=== PATIENT | female | born 1985 | race African-American/Black ===

== ENCOUNTER 2017-12-07 05:33 | Day surgery (SDC) | payer OTHER ==
[2017-12-04 15:23] VITALS: BMI 26.4
--- NOTE | 2017-12-07 15:20 | HP ---
History & Physical Update - History History: No Change - Physical Physical: No Change - Assessment Assessment: No Change - Plan Plan: No Change (Agree with H&P from 12/04/17. Pt with abdominal discomfort, endometrial polyps noted on saline infusion sonography and submucosal fibroid. Plan for hysteroscopic myomectomy/polypectomy and suction D&C. Risks/benefits /alternatives to plan discussed, risks including bleeding/infection/perforation discussed, pt aware and understands. Consents from 12/04/17 reconfirmed today.)
[2017-12-07] MEDS ORDERED: ACETAMINOPHEN 325 MG TABLET (FP) PO PRN (15:23)
[2017-12-07] MEDS ORDERED: IBUPROFEN 800 MG/8 ML IJ IVPB PRN (15:23)
[2017-12-07] MEDS ORDERED: LACTATED RINGERS SOLUTION 1,000 ML IV SCH ×2 (15:30→17:45)
[2017-12-07] MEDS ORDERED: KETOROLAC TROMETHAMINE 30 MG/1 ML VIAL ONE (16:48)
[2017-12-07] MEDS ORDERED: DEXAMETHASONE SOD PHOSPHATE 4 MG/1 ML VIAL ONE (16:48)
[2017-12-07] MEDS ORDERED: PROPOFOL 20 ML ONE ×3 (16:49)
[2017-12-07] MEDS ORDERED: MIDAZOLAM HCL 2 MG/2 ML SINGLE DOSE VIAL ONE ×2 (16:49)
[2017-12-07] MEDS ORDERED: oxyCODONE HCL 5 MG TABLET PO PRN (17:44)
[2017-12-07] MEDS ORDERED: PROMETHAZINE HCL 25 MG/1 ML VIAL IVPUSH PRN (17:44)
[2017-12-07] MEDS ORDERED: ONDANSETRON 4 MG/2 ML VIAL IVPUSH PRN (17:44)
[2017-12-07 18:32] VITALS: TEMP 98.2
[2017-12-07 19:43] VITALS: BP 134/77; PULSE 94
--- NOTE | 2017-12-08 10:17 | OP ---
Operative Note - Note: Operative Date: 12/07/17 (dictation [id number]) Pre-Operative Diagnosis: AUB, endometrial polyp, fibroids Operation: hysteroscopy, D&C Findings: no intracavitary lesions/fibroids/polyps noted Surgeon: Hetal Mohamud Anesthesiologist/PUMP ROOM OPERATOR: Addi Geller Anesthesia: General Specimens Removed: endometrial curettings Estimated Blood Loss (mls): 10 Operative Report Dictated: Yes
--- NOTE | 2017-12-08 11:23 | OP ---
DATE OF OPERATION: 12/07/2017 PREOPERATIVE DIAGNOSES: Abnormal uterine bleeding, endometrial polyp, and uterine fibroid. POSTOPERATIVE DIAGNOSES: Abnormal uterine bleeding, endometrial polyp, and uterine fibroid. PROCEDURE: Diagnostic hysteroscopy, dilatation and curettage, and suction dilatation and curettage. SURGEON: Hetal Mohamud DO ANESTHESIA: General by Dr. Geller COMPLICATIONS: None. ESTIMATED BLOOD LOSS: 10 mL. SPECIMENS: Endometrial curettings. FINDINGS: Include extensive intracavitary tissue. No intracavitary polyps or fibroids appreciated. SPONGE AND INSTRUMENT COUNTS: Correct. DISPOSITION: Stable to PACU. BRIEF HISTORY AND PROCEDURE: Patient is a 32-year-old female who has been seen in the office with complaints of pelvic pain and known to have uterine fibroids on saline infusion sonogram and endometrial polyp, and possible submucosal fibroid was appreciated. The patient elected to undergo a hysteroscopic resection of these lesions. The patient was admitted to hospital on December 07, 2017. Consents for the procedure were signed, and she was then taken back to the operating room and placed in the dorsal lithotomy position after anesthesia was administered. The speculum was placed inside the vagina. The anterior lip of the cervix was grasped with a tenaculum, and the cervix was dilated to accommodate an operative hysteroscope which was advanced to the fundus of the uterus. No intracavitary polyps or fibroids were appreciated. However, extensive intracavitary tissue was noted. A sharp dilatation and curettage and suction dilatation and curettage was performed at this time in all 4 locke of the uterus for tissue sampling. A second look with the camera again revealed no lesions. No evidence of uterine perforation or uterine trauma. All instruments were removed from the vagina. Sponge and instrument counts were reported to be correct. The patient tolerated the procedure well and recovering in stable condition in the PACU after the procedure. HETAL MOHAMUD DO /[id number]
--- NOTE | 2017-12-10 11:21 | PATH ---
Surgical Pathology Report Patient Name: ALEX MATIAS [facility]. Rec. #: [id number] /Age/Gender: 1985 (Age: 32) / F Account: [id number] Location: [facility] SURGICAL Taken: 12/07/2017 Received: 12/08/2017 Reported: 12/10/2017 Physicians: Hetal Mohamud M.D. Specimen(s) Received ENDOMETRIAL CURETTINGS Clinical History Menorrhagia Final Diagnosis ENDOMETRIAL CURETTINGS, DILATION AND CURETTAGE: POLYPOID FRAGMENTS OF SECRETORY ENDOMETRIUM WITH FOCAL HYPERSECRETORY FEATURES AND SCANT BENIGN ENDOCERVICAL TISSUE. Comment: Case seen interdepartmentally. Findings discussed with Dr. Mohamud. Suggest clinical correlation and follow-up. Electronically Signed Nadine Chinchilla M.D. Gross Description Received in formalin labeled "endometrial curetting" are multiple fragments of pink-dove hemorrhagic tissue measuring 1.5 x 1 x 0.3 cm in aggregate. Entire specimen submitted in one cassette. MLSZ/12/08/2017 san[facility]/12/08/2017
== END 2017-12-07 19:25 | disposition home or self-care (01) ==
LOC: JASU-SURG 05:33
PROVIDERS: ATTEND Obstetrics & Gynecology
PROC: 0UDB7ZX Extraction of Endometrium, Via Natural or Artificial Opening, Diagnostic (ICD-10-PCS; principal; 2017-12-07 16:00)
PROC: 0UJD8ZZ Inspection of Uterus and Cervix, Via Natural or Artificial Opening Endoscopic (ICD-10-PCS; 2017-12-07 16:00)
DX: N93.9 Abnormal uterine and vaginal bleeding, unspecified (principal)
CPT/HCPCS: 36415; 84703; 86850; 86900; 86901; 88305-TC; 94760

== ENCOUNTER 2020-03-05 05:05 | Day surgery (SDC) | payer OTHER ==
[2020-02-27 14:38] VITALS: BMI 24.1
[~2020-03-05 05:05] MED LIST: FERRIC SUBSULFATE 500 ML BOTTLE TP ONE; IODINE/POTASSIUM IODIDE 5%/10% 14 ML BOTTLE NR ONE
[2020-03-05] MEDS ORDERED: ACETAMINOPHEN 325 MG TABLET (FP) PO PRN (06:19)
[2020-03-05] MEDS ORDERED: IBUPROFEN 400 MG TABLET (FP) PO PRN (06:19)
[2020-03-05] MEDS ORDERED: PROPOFOL 20 ML ONE ×3 (08:50)
[2020-03-05] MEDS ORDERED: MIDAZOLAM HCL 2 MG/2 ML SINGLE DOSE VIAL ONE (08:51)
[2020-03-05] MEDS ORDERED: KETOROLAC TROMETHAMINE 30 MG/1 ML VIAL ONE (08:51)
[2020-03-05] MEDS ORDERED: SUCCINYLCHOLINE CHLORIDE 200 MG/10 ML SYRINGE ONE (08:51)
[2020-03-05] MEDS ORDERED: LIDOCAINE HCL/PF 2% SDV 5ML VIAL ONE (08:51)
[2020-03-05] MEDS ORDERED: ceFAZolin SODIUM 1 GM VIAL ONE (08:51)
[2020-03-05] MEDS ORDERED: DEXAMETHASONE SOD PHOSPHATE 4 MG/1 ML VIAL ONE (08:51)
[2020-03-05] MEDS ORDERED: IODINE/POTASSIUM IODIDE 5%/10% 14 ML BOTTLE NR ONE (09:38)
[2020-03-05] MEDS ORDERED: FERRIC SUBSULFATE 500 ML BOTTLE TP ONE (09:38)
[2020-03-05] MEDS ORDERED: oxyCODONE HCL 5 MG TABLET PO PRN ×2 (09:56)
[2020-03-05] MEDS ORDERED: ONDANSETRON 4 MG/2 ML VIAL IVPUSH PRN (09:56)
[2020-03-05 17:11] VITALS: BP 108/57; PULSE 88; TEMP 97.8
== END 2020-03-05 13:30 | disposition home or self-care (01) ==
LOC: JASU-SURG 05:05
PROVIDERS: ATTEND Obstetrics & Gynecology
PROC: 0UBC7ZX Excision of Cervix, Via Natural or Artificial Opening, Diagnostic (ICD-10-PCS; principal; 2020-03-05 09:00)
DX: N87.1 Moderate cervical dysplasia (principal); R87.820 Cervical low risk human papillomavirus (HPV) DNA test positive
CPT/HCPCS: 36415; 84703; 86850; 86900; 86901; 88307-TC; 94760